=== PATIENT | male | born 1945 | race Caucasian/White ===

== ENCOUNTER 2017-09-02 11:44 | Emergency (ER) | payer OTHER ==
[~2017-09-02] VITALS: Ht 175.3 cm; Wt 97.8 kg
[~2017-09-02 11:44] MED LIST: ASPI81CH PO; ATORVASTATIN CA20 MG PO; ATORVASTATIN CA40 MG PO; Bactrim Ds Tab1 EACH PO; CLOP75 PO; CYAN1000I IM; DULO60 PO; FLUC100 PO; HYDR1TAB94 PO; Humalog100 UNIT/1 SQ; INS70/30I SC; INSDET100 SQ; Isosorbide Mono60 MG PO; LANS15EC PO; LANS30EC PO; LOSA50 PO; LOSARTAN POTASS50 MG PO; Lasix20 MG PO; META800 PO; METF500C PO; METO50 PO; Metformin HCl500 M1 PO; NITR.6SL SL; Norco 5-325 Ta1 EACH PO; OXYC5 PO; Percocet 5-3251 EACH PO; Ranexa1000 MG PO; TAMS.4ER PO; TAMSULOSIN HCL0.4 MG PO; TRIMIX; VITAMIN D35000 UNIT PO
[2018-05-11] MEDS ORDERED: HYDR1TAB94 PO (15:12)
[2018-05-11] MEDS ORDERED: Cyclobenzaprine5 MG PO (15:40)
[2018-06-08] MEDS ORDERED: SYNJARDY 12.5-1 EAC1 PO (15:29)
[2018-06-08] MEDS ORDERED: FAMO20 PO (15:30)
[2018-06-08] MEDS ORDERED: ABAT250V (15:30)
[2018-06-08] MEDS ORDERED: Percocet 10-321 EACH PO (16:51)
[2018-06-08] MEDS ORDERED: Prednisone20 MG PO (16:51)
== END 2017-09-02 14:06 | disposition home or self-care (01) ==
LOC: ER 11:44
DX: Z03.89 Encounter for observation for other suspected diseases and conditions ruled out (principal); Z88.0 Allergy status to penicillin; Z88.1 Allergy status to other antibiotic agents; Z79.899 Other long term (current) drug therapy; Z79.4 Long term (current) use of insulin; Z79.82 Long term (current) use of aspirin; E11.9 Type 2 diabetes mellitus without complications
CPT/HCPCS: 74019; 99283

== ENCOUNTER 2017-09-13 13:45 | Day surgery (SDC) | payer OTHER ==
[2017-09-13] MEDS ORDERED: Aspirin EC81 MG (14:49)
[2017-09-13] MEDS ORDERED: CLOP75 PO (14:50)
[2017-09-13] MEDS ORDERED: ISOD40ER PO (14:50)
[2017-09-13] MEDS ORDERED: LOSARTAN POTASS50 MG PO (14:52)
[2017-09-13] MEDS ORDERED: METO25 PO (14:52)
[2017-09-13] MEDS ORDERED: Prevacid Soluta30 MG JT (14:53)
[2017-09-13] MEDS ORDERED: METF500 PO (14:54)
[2017-09-13] MEDS ORDERED: METO25 (14:55)
[2018-05-11] MEDS ORDERED: HYDR1TAB94 PO (15:12)
[2018-05-11] MEDS ORDERED: Cyclobenzaprine5 MG PO (15:40)
[2018-06-08] MEDS ORDERED: SYNJARDY 12.5-1 EAC1 PO (15:29)
[2018-06-08] MEDS ORDERED: FAMO20 PO (15:30)
[2018-06-08] MEDS ORDERED: ABAT250V (15:30)
[2018-06-08] MEDS ORDERED: Percocet 10-321 EACH PO (16:51)
[2018-06-08] MEDS ORDERED: Prednisone20 MG PO (16:51)
== END 2017-09-13 23:12 | disposition home or self-care (01) ==
LOC: ATC 13:45
DX: J44.1 Chronic obstructive pulmonary disease with (acute) exacerbation (principal); R51 Headache; M50.30 Other cervical disc degeneration, unspecified cervical region; E11.9 Type 2 diabetes mellitus without complications; I10 Essential (primary) hypertension; I25.10 Atherosclerotic heart disease of native coronary artery without angina pectoris; K21.9 Gastro-esophageal reflux disease without esophagitis
CPT/HCPCS: 96372; J0696

== ENCOUNTER 2017-09-14 01:04 | Day surgery (SDC) | payer OTHER ==
[~2017-09-14 01:04] MED LIST changes: +Aspirin EC81 MG; +ISOD40ER PO; +METF500 PO; +METO25; +METO25 PO; +Prevacid Soluta30 MG JT
[2018-05-11] MEDS ORDERED: HYDR1TAB94 PO (15:12)
[2018-05-11] MEDS ORDERED: Cyclobenzaprine5 MG PO (15:40)
[2018-06-08] MEDS ORDERED: SYNJARDY 12.5-1 EAC1 PO (15:29)
[2018-06-08] MEDS ORDERED: ABAT250V (15:30)
[2018-06-08] MEDS ORDERED: FAMO20 PO (15:30)
[2018-06-08] MEDS ORDERED: Percocet 10-321 EACH PO (16:51)
[2018-06-08] MEDS ORDERED: Prednisone20 MG PO (16:51)
== END 2017-09-14 14:35 | disposition home or self-care (01) ==
LOC: ATC 01:04
DX: J44.1 Chronic obstructive pulmonary disease with (acute) exacerbation (principal); R51 Headache; M50.30 Other cervical disc degeneration, unspecified cervical region; E11.9 Type 2 diabetes mellitus without complications; I10 Essential (primary) hypertension; K21.9 Gastro-esophageal reflux disease without esophagitis
CPT/HCPCS: 96372; J0696

== ENCOUNTER 2017-09-15 | Day surgery (SDC) | END 2017-09-15 15:41 | disposition home or self-care (01) ==

== ENCOUNTER 2017-09-16 | Day surgery (SDC) | END 2017-09-16 14:15 | disposition home or self-care (01) ==

== ENCOUNTER 2017-09-17 00:42 | Day surgery (SDC) | payer OTHER ==
[2018-05-11] MEDS ORDERED: HYDR1TAB94 PO (15:12)
[2018-05-11] MEDS ORDERED: Cyclobenzaprine5 MG PO (15:40)
[2018-06-08] MEDS ORDERED: SYNJARDY 12.5-1 EAC1 PO (15:29)
[2018-06-08] MEDS ORDERED: ABAT250V (15:30)
[2018-06-08] MEDS ORDERED: FAMO20 PO (15:30)
[2018-06-08] MEDS ORDERED: Percocet 10-321 EACH PO (16:51)
[2018-06-08] MEDS ORDERED: Prednisone20 MG PO (16:51)
== END 2017-09-17 13:59 | disposition home or self-care (01) ==
LOC: ATC 00:42
DX: J44.1 Chronic obstructive pulmonary disease with (acute) exacerbation (principal); R51 Headache; M50.30 Other cervical disc degeneration, unspecified cervical region; E11.9 Type 2 diabetes mellitus without complications; I10 Essential (primary) hypertension; I25.10 Atherosclerotic heart disease of native coronary artery without angina pectoris; I25.2 Old myocardial infarction; K21.9 Gastro-esophageal reflux disease without esophagitis
CPT/HCPCS: 96372; J0696

== ENCOUNTER 2018-12-26 17:05 | Emergency (ER) | payer MEDICARE ==
[~2018-12-26] VITALS: Ht 175.3 cm; Wt 90.7 kg
[~2018-12-26 17:05] MED LIST changes: +ABAT250V; +Cyclobenzaprine5 MG PO; +FAMO20 PO; +Percocet 10-321 EACH PO; +Prednisone20 MG PO; +SYNJARDY 12.5-1 EAC1 PO
[2018-12-26 17:53] LABS: BASOPHILS ABSOLUTE AUTO 0.04 K/mm3 (0.00-0.23); BASOPHILS PERCENT AUTO 1 % (0-2); EOSINOPHILS ABSOLUTE AUTO 0.12 K/mm3 (0.00-0.68); EOSINOPHILS PERCENT AUTO 2 % (0-6); Hematocrit 42.3 % (37.0-53.0); Hemoglobin 13.3 g/dL (13.5-17.5); IMMATURE GRAN ABSOLUTE AUTO 0.09 K/mm3 (0.00-0.10); IMMATURE GRAN PERCENT AUTO 2 % (0-1); LYMPHOCYTES ABSOLUTE AUTO 0.52 K/mm3 (0.84-5.20); LYMPHOCYTES PERCENT AUTO 10 % (21-46); MONOCYTES ABSOLUTE AUTO 0.48 K/mm3 (0.16-1.47); MONOCYTES PERCENT AUTO 9 % (4-13); Mean Corpuscular HGB 28.6 pg (26.0-34.0); Mean Corpuscular HGB Conc 31.4 g/dL (31.5-36.5); Mean Corpuscular Volume 91 fL (80-100); Mean Platelet Volume 10.9 fL (9.1-12.4); NEUTROPHILS ABSOLUTE AUTO 4.25 K/mm3 (1.96-9.15); NEUTROPHILS PERCENT AUTO 77 % (41-73); Platelet Count 96 K/mm3 (150-400); RDW Coefficient Variation 15.4 % (11.7-14.2); RDW Standard Deviation 50.5 fL (35.1-46.3); Red Blood Cell Count 4.65 M/mm3 (4.30-5.90)
[2018-12-26 18:18] LABS: Alanine Aminotransfer (ALT/SGP 52 U/L (12-78); Albumin, Blood 3.2 g/dL (3.4-5.0); Albumin/Globulin Ratio 1.1 (0.8-1.8); Alk Phos 105 U/L (50-136); Anion Gap 6 mmol/L (6-16); Aspartate Aminotrans (AST/SGOT 58 U/L (12-37); Bilirubin, Total 0.8 mg/dL (0.1-1.0); Blood Urea Nitrogen 25 mg/dL (8-24); Bun/Creatinine Ratio 17.5 (12.0-20.0); CO2, Blood 24 mmol/L (21-32); Calcium, Blood 8.2 mg/dL (8.5-10.1); Chloride, Blood 108 mmol/L (98-108); Creatinine, Blood 1.43 mg/dL (0.60-1.20); Glomerular Filtration Rate 51 (60-); Glucose, Blood 102 mg/dL (70-99); Potassium, Blood 5.2 mmol/L (3.5-5.5); Sodium, Blood 138 mmol/L (136-145); Total Protein, Blood 6.2 g/dL (6.4-8.2); Troponin I <0.015 ng/mL (0.000-0.040)
[2018-12-26 20:01] LABS: International Normalized Ratio 1.25
== END 2018-12-26 20:38 | disposition short-term general hospital (02) ==
LOC: ER 17:05
PROVIDERS: Emergency Medicine; Physician Assistant
DX: S06.6X9A Traumatic subarachnoid hemorrhage with loss of consciousness of unspecified duration, initial encounter (principal); S00.03XA Contusion of scalp, initial encounter; W01.198A Fall on same level from slipping, tripping and stumbling with subsequent striking against other object, initial encounter; Z88.0 Allergy status to penicillin; Z88.8 Allergy status to other drugs, medicaments and biological substances; Z88.1 Allergy status to other antibiotic agents; Z79.899 Other long term (current) drug therapy; Z79.82 Long term (current) use of aspirin; Z79.52 Long term (current) use of systemic steroids; E11.9 Type 2 diabetes mellitus without complications
CPT/HCPCS: 36415; 70450; 80053; 84484; 85025; 85610; 85730; 93005; 93010; 99285-25

== ENCOUNTER 2019-02-07 13:30 | Emergency (ER) | payer MEDICARE ==
[~2019-02-07] VITALS: Ht 175.3 cm; Wt 83.9 kg
[2019-02-07 14:28] LABS: BASOPHILS ABSOLUTE AUTO 0.04 K/mm3 (0.00-0.23); BASOPHILS PERCENT AUTO 1 % (0-2); EOSINOPHILS ABSOLUTE AUTO 0.08 K/mm3 (0.00-0.68); EOSINOPHILS PERCENT AUTO 2 % (0-6); Hematocrit 49.5 % (37.0-53.0); IMMATURE GRAN ABSOLUTE AUTO 0.02 K/mm3 (0.00-0.10); IMMATURE GRAN PERCENT AUTO 0 % (0-1); LYMPHOCYTES ABSOLUTE AUTO 0.61 K/mm3 (0.84-5.20); LYMPHOCYTES PERCENT AUTO 11 % (21-46); MONOCYTES ABSOLUTE AUTO 0.41 K/mm3 (0.16-1.47); MONOCYTES PERCENT AUTO 8 % (4-13); Mean Corpuscular HGB 28.1 pg (26.0-34.0); Mean Corpuscular HGB Conc 32.3 g/dL (31.5-36.5); Mean Corpuscular Volume 87 fL (80-100); Mean Platelet Volume 11.9 fL (9.1-12.4); NEUTROPHILS ABSOLUTE AUTO 4.31 K/mm3 (1.96-9.15); NEUTROPHILS PERCENT AUTO 79 % (41-73); Platelet Count 120 K/mm3 (150-400); RDW Coefficient Variation 15.9 % (11.7-14.2); RDW Standard Deviation 49.4 fL (35.1-46.3); Red Blood Cell Count 5.69 M/mm3 (4.30-5.90); White Blood Cell Count 5.47 K/mm3 (4.00-11.30)
[2019-02-07 15:03] LABS: Alanine Aminotransfer (ALT/SGP 46 U/L (12-78); Albumin, Blood 3.5 g/dL (3.4-5.0); Albumin/Globulin Ratio 0.9 (0.8-1.8); Alk Phos 218 U/L (50-136); Anion Gap 11 mmol/L (6-16); Aspartate Aminotrans (AST/SGOT 25 U/L (12-37); Bilirubin, Total 1.3 mg/dL (0.1-1.0); Blood Urea Nitrogen 21 mg/dL (8-24); CO2, Blood 24 mmol/L (21-32); Calcium, Blood 9.5 mg/dL (8.5-10.1); Chloride, Blood 101 mmol/L (98-108); Globulin, Blood 3.7 g/dL (2.2-4.0); Glucose, Blood 445 mg/dL (70-99); Potassium, Blood 4.2 mmol/L (3.5-5.5); Sodium, Blood 136 mmol/L (136-145); Total Protein, Blood 7.2 g/dL (6.4-8.2)
[2019-02-07] MEDS ORDERED: Novolog100 UNIT/2 (15:12)
[2019-02-07] MEDS ORDERED: LOSARTAN POTASS25 MG (15:13)
[2019-02-07] MEDS ORDERED: ZYRTEC10 M1 PO (15:15)
[2019-02-07] MEDS ORDERED: TRESIBA FL100 UNIT/1 SQ (15:16)
[2019-02-07] MEDS ORDERED: DULO60 PO (15:16)
[2019-02-07 16:26] LABS: Source, Urine Clean Catch
[2019-02-07 16:35] LABS: Bilirubin, Urine Neg (Neg); Blood, Urine 2+ (Neg); Glucose Qualitative, Urine 4+ (Neg); Ketones, Urine 2+ (Neg); Leukocyte Esterase, Urine Neg (Neg); Nitrite, Urine Neg (Neg); Protein, Urine 2+ (Neg); Specific Gravity, Urine 1.015 (1.003-1.022); Urobilinogen, Urine NORM (Normal)
[2019-02-07 16:45] LABS: Appearance, Urine Clear (Clear); Color, Urine Yellow (P-Yellow)
[2019-02-07 16:47] LABS: Bacteria Rare /hpf; Squamous Epithelial Cells Few /hpf (Few); White Blood Cells, Urine 0-2 /hpf (0-5); Yeast/Fungi Urine Rare /hpf
[2019-02-07 16:49] LABS: Bun/Creatinine Ratio 24.8 (12.0-20.0); Creatinine, Blood 0.85 mg/dL (0.60-1.20); Glomerular Filtration Rate >60 (60-)
== END 2019-02-07 17:54 | disposition home or self-care (01) ==
LOC: ER 13:30
PROVIDERS: Physician Assistant
DX: E11.65 Type 2 diabetes mellitus with hyperglycemia (principal); Z91.14 Patient's other noncompliance with medication regimen; I10 Essential (primary) hypertension; I25.2 Old myocardial infarction; Z88.0 Allergy status to penicillin; Z88.1 Allergy status to other antibiotic agents; Z79.899 Other long term (current) drug therapy
CPT/HCPCS: 70450; 80053; 81001; 82947; 84443; 85025; 93005; 93010; 99284-25

== ENCOUNTER → 2019-03-08 | Outpatient (CLI) | payer MEDICARE ==
[~2019-03-08] MED LIST changes: +LOSARTAN POTASS25 MG; +Novolog100 UNIT/2; +TRESIBA FL100 UNIT/1 SQ; +ZYRTEC10 M1 PO
== END | disposition home or self-care (01) ==
LOC: LAB SHORT 10:53 → LAB 10:53
DX: R19.7 Diarrhea, unspecified (principal)
CPT/HCPCS: 87015; 87045; 87046; 87177; 87205; 87209; 87493; 87899

== ENCOUNTER → 2019-05-30 | Outpatient (CLI) | payer MEDICARE ==
[2019-06-01 14:11] LABS: Stool Occult Bld Immuno 1 Negative (NEGATIVE); Stool Occult Bld Immuno 2 Negative (NEGATIVE)
== END | disposition home or self-care (01) ==
LOC: OLS 16:00 → LAB SHORT 16:00
PROVIDERS: Internal Medicine Gastroenterology
DX: Z12.11 Encounter for screening for malignant neoplasm of colon (principal)
CPT/HCPCS: 82274

== ENCOUNTER 2019-08-09 21:16 | Inpatient (IN) | payer MEDICARE ==
[~2019-08-09] VITALS: Ht 175.3 cm; Wt 93.3 kg
[~2019-08-09 21:16] MED LIST changes: -Aspirin EC81 MG; +Aspirin EC81 MG PO; +Cymbalta20 MG PO; -Novolog100 UNIT/2; +Novolog100 UNIT/2 SC; -Prevacid Soluta30 MG JT; +Prevacid Soluta30 MG PO
[2019-08-09 22:19] LABS: BASOPHILS ABSOLUTE AUTO 0.05 K/mm3 (0.00-0.23); BASOPHILS PERCENT AUTO 1 % (0-2); EOSINOPHILS ABSOLUTE AUTO 0.23 K/mm3 (0.00-0.68); EOSINOPHILS PERCENT AUTO 6 % (0-6); Hematocrit 42.6 % (37.0-53.0); Hemoglobin 13.2 g/dL (13.5-17.5); IMMATURE GRAN ABSOLUTE AUTO 0.02 K/mm3 (0.00-0.10); IMMATURE GRAN PERCENT AUTO 1 % (0-1); LYMPHOCYTES ABSOLUTE AUTO 0.72 K/mm3 (0.84-5.20); LYMPHOCYTES PERCENT AUTO 18 % (21-46); MONOCYTES ABSOLUTE AUTO 0.44 K/mm3 (0.16-1.47); MONOCYTES PERCENT AUTO 11 % (4-13); Mean Corpuscular HGB 27.6 pg (26.0-34.0); Mean Corpuscular Volume 89 fL (80-100); Mean Platelet Volume 10.2 fL (9.1-12.4); NEUTROPHILS ABSOLUTE AUTO 2.57 K/mm3 (1.96-9.15); NEUTROPHILS PERCENT AUTO 64 % (41-73); Platelet Count 85 K/mm3 (150-400); RDW Coefficient Variation 16.9 % (11.7-14.2); RDW Standard Deviation 55.3 fL (35.1-46.3); Red Blood Cell Count 4.79 M/mm3 (4.30-5.90); White Blood Cell Count 4.03 K/mm3 (4.00-11.30)
[2019-08-09 22:29] LABS: Source, Urine Voided
[2019-08-09 22:31] LABS: Bilirubin, Urine Neg (Neg); Blood, Urine 4+ (Neg); Glucose Qualitative, Urine 4+ (Neg); Ketones, Urine 1+ (Neg); Leukocyte Esterase, Urine Neg (Neg); Nitrite, Urine Neg (Neg); Protein, Urine 3+ (Neg); Urobilinogen, Urine NORM (Normal)
[2019-08-09 22:35] LABS: Alanine Aminotransfer (ALT/SGP 26 U/L (12-78); Albumin, Blood 2.9 g/dL (3.4-5.0); Albumin/Globulin Ratio 0.9 (0.8-1.8); Alk Phos 167 U/L (50-136); Anion Gap 9 mmol/L (6-16); Aspartate Aminotrans (AST/SGOT 29 U/L (12-37); Bilirubin, Total 0.6 mg/dL (0.1-1.0); Blood Urea Nitrogen 20 mg/dL (8-24); Bun/Creatinine Ratio 23.4 (12.0-20.0); CO2, Blood 27 mmol/L (21-32); Calcium, Blood 8.6 mg/dL (8.5-10.1); Chloride, Blood 109 mmol/L (98-108); Creatinine, Blood 0.86 mg/dL (0.60-1.20); Globulin, Blood 3.3 g/dL (2.2-4.0); Glomerular Filtration Rate >60 (60-); Glucose, Blood 279 mg/dL (70-99); Potassium, Blood 4.5 mmol/L (3.5-5.5); Sodium, Blood 145 mmol/L (136-145); Total Protein, Blood 6.2 g/dL (6.4-8.2)
[2019-08-09 22:39] LABS: Color, Urine Yellow (P-Yellow)
[2019-08-09 22:40] LABS: Appearance, Urine Clear (Clear); Bacteria Not Seen /hpf; Mucus Light (0-Heavy); Squamous Epithelial Cells Not Seen /hpf (Few); White Blood Cells, Urine Not Seen /hpf (0-5)
--- NOTE | 2019-08-10 02:10 | NUR ---
ADMIT TO UNIT PATIENT ARRIVED FROM ER VIA GURNEY AND SAFELY TRANSFERRED SELF TO UNIT BED WITH NO ISSUES OBSERVED BY PCU STAFF. PT IS ALERT AND ORIENTED X 3 DENIES ACUTE PAIN, DENIES NAUSEA. VSS, O2 SAT 94% ON ROOM AIR. WILL TREAT PER EMAR AND UNIT PROTOCOL AND CONTINUE TO MONITOR AND PROVIDE CARE. CALL LIGHT W/IN REACH
--- NOTE | 2019-08-10 05:47 | NUR ---
SHIFT SUMMARY PATIENT SLEEPING. TREATED PATIENT PER MD ORDER AND UNIT PROTOCOL. ALL VSS AND WNL. O2 SATURATION AT 92% ON RA. WILL CONTINUE TO MONITOR, AND WILL PASS CARE AND REPORT TO ONCOMING SHIFT. BED LOCKED AND LOW, CALL LIGHT W/IN REACH
[2019-08-10 09:48] LABS: Hematocrit 43.4 % (37.0-53.0); Hemoglobin 13.4 g/dL (13.5-17.5); Mean Corpuscular HGB 27.3 pg (26.0-34.0); Mean Corpuscular HGB Conc 30.9 g/dL (31.5-36.5); Mean Corpuscular Volume 89 fL (80-100); Mean Platelet Volume 9.9 fL (9.1-12.4); Platelet Count 94 K/mm3 (150-400); RDW Coefficient Variation 16.9 % (11.7-14.2); RDW Standard Deviation 54.2 fL (35.1-46.3)
[2019-08-10 10:00] LABS: International Normalized Ratio 1.16; Prothrombin Time Results 12.3 Sec (9.7-11.5)
[2019-08-10 10:01] LABS: Alanine Aminotransfer (ALT/SGP 30 U/L (12-78); Albumin/Globulin Ratio 0.9 (0.8-1.8); Alk Phos 133 U/L (50-136); Anion Gap 5 mmol/L (6-16); Aspartate Aminotrans (AST/SGOT 30 U/L (12-37); Bilirubin, Total 1.4 mg/dL (0.1-1.0); Blood Urea Nitrogen 19 mg/dL (8-24); Bun/Creatinine Ratio 19.8 (12.0-20.0); CO2, Blood 31 mmol/L (21-32); Calcium, Blood 8.6 mg/dL (8.5-10.1); Chloride, Blood 106 mmol/L (98-108); Creatinine, Blood 0.96 mg/dL (0.60-1.20); Globulin, Blood 3.5 g/dL (2.2-4.0); Glomerular Filtration Rate >60 (60-); Glucose, Blood 169 mg/dL (70-99); Potassium, Blood 3.6 mmol/L (3.5-5.5); Sodium, Blood 142 mmol/L (136-145); Total Protein, Blood 6.5 g/dL (6.4-8.2)
--- NOTE | 2019-08-10 14:11 | NUR ---
DR STEPHEN IN TO SEE PT. PER DR STEPHEN HE RECOMMENDS [facility] STRESS TEST, ECHO AND ZIO MONITOR FOR 30 DAYS UPON DISCHARGE. PER DR STEPHEN HE DOES NOT SEE AN INDICATION FOR HEPARIN GTT. ISTRATE NOTIFIED AND REPORTS HE WILL PLACE ORDERS.
--- NOTE | 2019-08-10 14:25 | NUR ---
ECHO IN PROGRESS.
--- NOTE | 2019-08-10 14:31 | NUR ---
PT UNABLE TO GET STRESS TEST DONE TODAY. DR GIBSON NOTIFIED AND ASKED IF PT CAN GET A 1 DAY STRESS TEST DONE TOMORROW. PER IMAGING THEY WILL LET THE NUC MED TECH KNOW TOMORROW THAT DR GIBSON WOULD LIKE A 1 DAY STRESS TEST IF POSSIBLE. NUC MED TECH WILL EVALUATE IF POSSIBLE. PER DR GIBSON PLACE PT ON LOVENOX 40MG DAILY STARTING TODAY AT 1700 HEPARIN GTT WAS DC'D.
--- NOTE | 2019-08-10 16:30 | NUR ---
SHIFT SUMMARY- PT A/OX4, INDEP UP IN ROOM. PT REPORTS DIZZINESS WITH SITTING OR STANDING THAT COMES AND GOES, PT STEADY WITH AMBULATION. LS CLEAR WITH CRACKLES IN THE LEFT BASE, ON RA, PT REPORTS HE HAS A CPAP AT HOME BUT HAS NOT WORN IT FOR THE PAST 3-4 MONTHS, ENCOURAGED PT TO USE CPAP WHILE AT THE HOSPITAL. TELE NSR AT 89. 3+ BLE EDEMA NOTED. PT DIURESING WELL. CARDIOLOGY CONSULT TODAY, RECOMMENDATIONS FOR ECHO AND STRESS TEST WELL ZIO MONITOR AT DISCHARGE FOR 30 DAYS. PT TO BE NPO EXCEPT WATER FOR STRESS TEST TOMORROW. PT CONT TO REPORT FEELING BLOATED TO ABD, ABD MILDLY DISTENDED WITH NORMAL BOWEL TONES. NO OTHER ACUTE CHANGES THIS SHIFT.
--- NOTE | 2019-08-10 17:07 | NUR ---
ECHOCARDIOGRAM COMPLETED
[2019-08-10] MEDS ORDERED: ISOSORBIDE MONO30 MG PO (17:20)
[2019-08-10] MEDS ORDERED: METF500C PO (17:26)
[2019-08-10] MEDS ORDERED: TRULICITY1.5 MG/0.5 SC (17:27)
--- NOTE | 2019-08-10 17:49 | NUR ---
DR STEPHEN IN TO SEE PT. PER DR STEPHEN CHANGE OF PLANS, CANCEL STRESS TEST. PT TO GO FOR HEART CATH TOMORROW. DR STEPHEN IN AND SPOKE WITH PT AND FAMILY. CONSENT PLACED IN CHART. PT TO BE NPO AFTER MIDNIGHT.
[2019-08-11 04:38] LABS: BASOPHILS ABSOLUTE AUTO 0.05 K/mm3 (0.00-0.23); BASOPHILS PERCENT AUTO 1 % (0-2); EOSINOPHILS ABSOLUTE AUTO 0.26 K/mm3 (0.00-0.68); EOSINOPHILS PERCENT AUTO 7 % (0-6); Hematocrit 42.1 % (37.0-53.0); Hemoglobin 13.3 g/dL (13.5-17.5); IMMATURE GRAN ABSOLUTE AUTO 0.02 K/mm3 (0.00-0.10); IMMATURE GRAN PERCENT AUTO 1 % (0-1); LYMPHOCYTES ABSOLUTE AUTO 0.74 K/mm3 (0.84-5.20); LYMPHOCYTES PERCENT AUTO 20 % (21-46); MONOCYTES ABSOLUTE AUTO 0.44 K/mm3 (0.16-1.47); MONOCYTES PERCENT AUTO 12 % (4-13); Mean Corpuscular HGB 27.7 pg (26.0-34.0); Mean Corpuscular HGB Conc 31.6 g/dL (31.5-36.5); Mean Corpuscular Volume 88 fL (80-100); Mean Platelet Volume 11.6 fL (9.1-12.4); NEUTROPHILS ABSOLUTE AUTO 2.21 K/mm3 (1.96-9.15); NEUTROPHILS PERCENT AUTO 60 % (41-73); Platelet Count 81 K/mm3 (150-400); RDW Coefficient Variation 16.6 % (11.7-14.2); RDW Standard Deviation 53.6 fL (35.1-46.3); White Blood Cell Count 3.72 K/mm3 (4.00-11.30)
[2019-08-11 04:56] LABS: Anion Gap 6 mmol/L (6-16); Blood Urea Nitrogen 22 mg/dL (8-24); Bun/Creatinine Ratio 22.6 (12.0-20.0); CO2, Blood 30 mmol/L (21-32); Calcium, Blood 8.7 mg/dL (8.5-10.1); Chloride, Blood 105 mmol/L (98-108); Creatinine, Blood 0.97 mg/dL (0.60-1.20); Glomerular Filtration Rate >60 (60-); Glucose, Blood 275 mg/dL (70-99); Potassium, Blood 3.8 mmol/L (3.5-5.5); Sodium, Blood 141 mmol/L (136-145)
--- NOTE | 2019-08-11 06:04 | NUR ---
SHIFT SUMMARY Pt with no acute events overnight. VSS. Denies CP or pressure. Pt with difficulty falling to sleep, melatonin ordered by provider and given per orders. pt able to sleep on and off after 0100. Pt is alert and oriented, independant in room, able to make needs known. No events on tele. See shift assessment for detailed systems assessment, no acute changes from initial assessment. Pt aware of plan of care. NPO since MN per orders in preparation for possible angio this am. Call light in reach. Will continue to monitor.
--- NOTE | 2019-08-11 08:00 | NUR ---
ASSUMED CARE PT ALERT AND ORIENTED. VS STABLE. O2 SATS REMAIN ABOVE 90% ON RA. BP STABLE. HR NSR. PT DENIES ANY CP/PRESSURE. DR. STEPHEN IN TO SEE PT THIS AM WITH PLANS FOR CARDIAC CATH. PT AWAITING PROCEDURE. WILL CONTINUE TO MONITOR CLOSELY.
--- NOTE | 2019-08-11 14:00 | NUR ---
UPDATE PT TAKEN TO [facility] FOR CARDIAC CATH. WILL AWAIT RETURN.
--- NOTE | 2019-08-11 17:00 | NUR ---
PT RETURNED. VS STABLE. HR NSR. PT DENIES ANY PAIN. RIGHT RADIAL SITE WITH NO SIGNS OF BLEEDING OR HEMATOMA NOTED. TR BAND IN PLACE WITH 13ML OF AIR AND ARM BOARD IN PLACE. WILL CONTINUE TO MONITOR CLOSELY.
--- NOTE | 2019-08-11 18:34 | NUR ---
SHIFT SUMMARY PT ALERT AND ORIENTED. VS STABLE. HR NSR. BP STABLE. RIGHT RADIAL SITE FREE FROM ANY BLEEDING OR HEMATOMA NOTED. RIGHT BRACHIAL SITE WITH NAREN DRESSING IN PLACE. PT COMPLAINED OF CHEST PAIN 8/[address] STEPHEN CALLED AND 1 NITRO GIVEN. ECG COMPLETED IN FRONT OF CHART. PT REPORTS CHEST PAIN IS NOW 2/10 AFTER 1 NITRO. WILL CONTINUE TO MONITOR CLOSELY AND REPORT TO ONCOMING RN. CALL LIGHT IN REACH.
[2019-08-12 03:53] LABS: BASOPHILS ABSOLUTE AUTO 0.03 K/mm3 (0.00-0.23); BASOPHILS PERCENT AUTO 1 % (0-2); EOSINOPHILS ABSOLUTE AUTO 0.18 K/mm3 (0.00-0.68); EOSINOPHILS PERCENT AUTO 4 % (0-6); Hematocrit 42.1 % (37.0-53.0); Hemoglobin 13.2 g/dL (13.5-17.5); IMMATURE GRAN ABSOLUTE AUTO 0.02 K/mm3 (0.00-0.10); IMMATURE GRAN PERCENT AUTO 1 % (0-1); LYMPHOCYTES ABSOLUTE AUTO 0.64 K/mm3 (0.84-5.20); LYMPHOCYTES PERCENT AUTO 15 % (21-46); MONOCYTES ABSOLUTE AUTO 0.46 K/mm3 (0.16-1.47); MONOCYTES PERCENT AUTO 11 % (4-13); Mean Corpuscular HGB 27.6 pg (26.0-34.0); Mean Corpuscular HGB Conc 31.4 g/dL (31.5-36.5); Mean Corpuscular Volume 88 fL (80-100); Mean Platelet Volume 10.9 fL (9.1-12.4); NEUTROPHILS ABSOLUTE AUTO 2.93 K/mm3 (1.96-9.15); NEUTROPHILS PERCENT AUTO 69 % (41-73); Platelet Count 75 K/mm3 (150-400); RDW Coefficient Variation 16.4 % (11.7-14.2); RDW Standard Deviation 53.1 fL (35.1-46.3); Red Blood Cell Count 4.79 M/mm3 (4.30-5.90); White Blood Cell Count 4.26 K/mm3 (4.00-11.30)
[2019-08-12 04:08] LABS: Anion Gap 7 mmol/L (6-16); Blood Urea Nitrogen 19 mg/dL (8-24); CO2, Blood 30 mmol/L (21-32); Calcium, Blood 8.5 mg/dL (8.5-10.1); Chloride, Blood 101 mmol/L (98-108); Glomerular Filtration Rate >60 (60-); Glucose, Blood 298 mg/dL (70-99); Magnesium, Blood 1.7 mg/dL (1.6-2.4); Potassium, Blood 3.7 mmol/L (3.5-5.5); Sodium, Blood 138 mmol/L (136-145)
--- NOTE | 2019-08-12 06:48 | NUR ---
Shift Summary No acute events this shift, R Radial access site fully recovered at 0215; site wnl, tegaderm in place, arm board in place, pt compliant with R arm restriction. R brachial access site with ELIZABETH rasheed. Pt alert and oriented, denies chest pain or pressure. No events on tele. No acute changes from initial shift assessment. RT in this shift for breathing tx d/t SOB and wheezing noted; SOB resolved and wheezing resolved with tx. Pt independant in room, able to make needs known. Will continue to monitor.
--- NOTE | 2019-08-12 09:00 | NUR ---
ASSUMED CARE PT ALERT AND ORIENTED. VS STABLE. HR NSR. PT DENIES ANY CP/PRESSURE. O2 SATS REMAIN ABOVE 90% ON RA. PT ABLE TO AMBULATE THROUGH THE DEPARTMENT WITH O2 SATS REMAINING ABOVE 90% ON RA. PT DENIES FEELING SOB THIS AM. DR. STEPHEN IN WITH MEDICATION CHANGES. WILL CONTINUE TO MONITOR CLOSELY.
--- NOTE | 2019-08-12 17:57 | NUR ---
SHIFT SUMMARY PT ALERT AND ORIENTED. VS STABLE. O2 SATS REMAIN ABOVE 90% ON RA. PT DENIES SOB/ CP OR PRESSURE. HR NSR. PT INDEPENDENT IN ROOM. DR. STEPHEN PLAN TO KEEP PT OVER NIGHT TO CONTINUE TO DIURESE. SEWING MACHINE TESTER IN ROOM FITTING PT FOR LIFE VEST AT THIS TIME. WILL CONTINUE TO MONITOR AND REPORT TO ONCOMING RN. CALL LIGHT IN REACH.
--- NOTE | 2019-08-12 22:40 | NUR ---
Assumed Care Pt alert and oriented, indpendant in room, steady gait. Family at bedside until approx 2100. Pt is calm, cooperative with care. Breathing is even and unlabored on RA. See shift assessment for detailed systems assessment. Denies CP or pressure. Life vest in place. Pt verbalizes no further questions at this time regarding life vest. Education provided to pt and pt's daughter regarding CHF, education materals placed in discharge folder. pt uses call light to make needs known. S/L at this time. VSS. no acute concerns to note. Will continue to montior.
[2019-08-13 04:32] LABS: Anion Gap 6 mmol/L (6-16); Blood Urea Nitrogen 22 mg/dL (8-24); CO2, Blood 31 mmol/L (21-32); Calcium, Blood 8.3 mg/dL (8.5-10.1); Chloride, Blood 102 mmol/L (98-108); Creatinine, Blood 1.05 mg/dL (0.60-1.20); Glomerular Filtration Rate >60 (60-); Glucose, Blood 305 mg/dL (70-99); Magnesium, Blood 1.7 mg/dL (1.6-2.4); Potassium, Blood 3.8 mmol/L (3.5-5.5); Sodium, Blood 139 mmol/L (136-145)
--- NOTE | 2019-08-13 05:53 | NUR ---
Shift Summary Pt with no acute events overnight. Breahting even and unlabored, RA. Life vest in place. No events on tele. Pt denies chest pain or pressure. Pt sleeping on and off throughout shift, approx 4 hrs of sleep last night. Pt complains of not being able to sleep well during this hosptial admission. Pt expresses daily life stressors to this RN, therapeutic listening and communication given. Lantus given per orders, CBG remains elevated this AM. Indep in room. Will continue to monitor
--- NOTE | 2019-08-13 10:41 | NUR ---
Patient is lying in bed and alert. Patient openly tells me about his medical history, his family (including the of his 10yrs ago), his career and his agnostic view of alevism. Patient states that he still has not gotten over the of his . He also shares about his concerns about wearing a monitor for 3 months. I listen empathically, conduct a life review, normalize patient's experience and provide grief support and a blessing. Patient responds well and shows signs of an elevated mood. I will continue to remain available to patient and family.
--- NOTE | 2019-08-13 10:51 | NUR ---
DR SPRING IN TO SEE PT. P.T. TO BE ORDERED TODAY W PLAN TO HAVE PT OOB TO CHAIR. IF BP RAISES/STABLE AND PT TOLERATES ACIVITY PT MAY BE DC'D TO SNF LATER TODAY.
--- NOTE | 2019-08-13 11:01 | NUR ---
PT AWAKE IN BED THIS AM W FAMILY AT BEDSIDE. PT DENIES C/O CHEST PAIN/PRESSURE/SOB. PT W LIFE VEST ON, LIFE VEST OFF FOR SHOWER. [employer] CALL IN TO HELP TROUBLE SHOOT LIFE VEST POST SHOWER; BATTERY NEEDED TO COME OUT WHEN OFF OF PT; FAMILY EDUCATED BY SEGUNDO. DR STEPHEN IN THIS AM AT 0830. LASIX CHANGED TO PO AND GIVEN. PER DR STEPHEN PT MAY BE DC'D HOME LATER IF HE DOES WELL ON PO LASIX;IE ADEQUATE U/O. PT DOES HAVE 3+ PITTING EDMEA TO BLE, LUNGS ARE CLEAR, VSS.
[2019-08-13] MEDS ORDERED: TOPROL XL25 MG PO (11:26)
[2019-08-13] MEDS ORDERED: CLOP75 PO (11:31)
[2019-08-13] MEDS ORDERED: ALBU90OI INH (11:31)
[2019-08-13] MEDS ORDERED: FURO40 PO (11:31)
[2019-08-13] MEDS ORDERED: ATOR80 PO (11:31)
[2019-08-13] MEDS ORDERED: Prinivil10 MG PO (11:32)
[2019-08-13] MEDS ORDERED: Loperamide2 MG PO (11:33)
[2019-08-13] MEDS ORDERED: MELATONIN5 M1 PO (11:33)
[2019-08-13] MEDS ORDERED: ZOFRAN4 MG PO (11:35)
[2019-08-13] MEDS ORDERED: SPIR25 PO (11:36)
--- NOTE | 2019-08-13 13:00 | NUR ---
PT LAYING BACK IN BED. PT DENIES C/O PAIN, BUT STATES HE IS A LITTLE SOB WHEN ASKED. RESP 16-24 DEPENDING ON EXERTION. PT HAS VOIDED 225 DARK URINE THIS SHIFT SO FAR. VSS. LUMGS CLEAR JUST DIM TO BASES. PT CALM AND IN NO RESP DISTRESS.
--- NOTE | 2019-08-13 14:22 | NUR ---
PT SITTING UP, DENIES SOB, PAIN. (PT C/O MINIMAL SOB WHILE LYING FLAT ONLY). VSS. U/O FOR SHIFT 325. LUNGS CLEAR, NO CHANGE IN EDEMA. THIS UPDATE GIVEN TO DR STEPHEN. OKAY TO BE DISCHARGED HOME PER DR STEPHEN. PT HAS CALLED FAMILY FOR PICKUP.
--- NOTE | 2019-08-13 16:58 | NUR ---
PT DISCHARGED HOME AT 1555 IN CARE OF HIS SON IN LAW VIA WHEELCHAIR ESCORT/ELECTRONIC SYSTEM ENGINEER. PT AND FAMILY GIVEN VERBAL AND WRITTEN DISCHARGE INSTRUCTIONS WITH CLEAR UNDERSTANDING. FOLLOW UP APPOINTMENTS MADE FOR PT AND NEW RX CALLED INTO PT'S PHARMACY. PT DC'D WITH LIFE VEST ON AND FEELS COMFORTABLE WITH THE EDUCATION GIVEN.
== END 2019-08-13 15:55 | disposition home or self-care (01) | DRG 246 ==
LOC: ER 21:16 → PCU 08-10 01:19
PROVIDERS: Emergency Medicine; Family Medicine; ADMIT Internal Medicine
PROC: 4A023N8 Measurement of Cardiac Sampling and Pressure, Bilateral, Percutaneous Approach (ICD-10-PCS; principal; 2019-08-11)
PROC: 027136Z Dilation of Coronary Artery, Two Arteries with Three Drug-eluting Intraluminal Devices, Percutaneous Approach (ICD-10-PCS; 2019-08-11)
PROC: B211YZZ Fluoroscopy of Multiple Coronary Arteries using Other Contrast (ICD-10-PCS; 2019-08-11)
PROC: 02703ZZ Dilation of Coronary Artery, One Artery, Percutaneous Approach (ICD-10-PCS; 2019-08-11)
DX: I25.10 Atherosclerotic heart disease of native coronary artery without angina pectoris (principal); I50.33 Acute on chronic diastolic (congestive) heart failure; I25.810 Atherosclerosis of coronary artery bypass graft(s) without angina pectoris; I11.0 Hypertensive heart disease with heart failure; Z95.5 Presence of coronary angioplasty implant and graft; I25.2 Old myocardial infarction; K21.9 Gastro-esophageal reflux disease without esophagitis; E11.9 Type 2 diabetes mellitus without complications; I44.7 Left bundle-branch block, unspecified; D69.49 Other primary thrombocytopenia
CPT/HCPCS: 36415; 71046; 74018; 80048; 80053; 81001; 82947; 83735; 83880; 84484; 85025; 85027; 85347; 85610; 85730; 93005; 93010; 93306; 93458; 93460; 94640; 94760; 96374; 99285-25; C1725; C1769; C1874; C1887; C1894; C9600; C9601; J1644; J1650; J1940; J2250; J3010; J7030; Q9967

== ENCOUNTER 2020-09-09 18:05 | Inpatient (IN) | payer MEDICARE ==
[~2020-09-09] VITALS: Ht 172.7 cm; Wt 86.8 kg
[~2020-09-09 18:05] MED LIST changes: +ALBU90OI INH; +ATOR80 PO; +ENTRESTO 24 MG1 EAC3 PO; +FURO40 PO; +ISOSORBIDE MONO30 MG PO; +Loperamide2 MG PO; +MELATONIN5 M1 PO; +Prinivil10 MG PO; +SPIR25 PO; +TOPROL XL25 MG PO; +TORS10 PO; -TRESIBA FL100 UNIT/1 SQ; +TRESIBA FL100 UNIT/2 SC; +TRULICITY1.5 MG/0.5 SC; +ZOFRAN4 MG PO
[2020-09-09 18:43] LABS: Hematocrit 36.9 % (37.0-53.0); Mean Corpuscular HGB 28.8 pg (26.0-34.0); Mean Corpuscular HGB Conc 32.5 g/dL (31.5-36.5); Mean Corpuscular Volume 89 fL (80-100); Mean Platelet Volume 11.6 fL (9.1-12.4); RDW Coefficient Variation 17.1 % (11.7-14.2); RDW Standard Deviation 55.1 fL (35.1-46.3); Red Blood Cell Count 4.17 M/mm3 (4.30-5.90); White Blood Cell Count 18.27 K/mm3 (4.00-11.30)
[2020-09-09 18:47] LABS: Platelet Count 38 K/mm3 (150-400)
[2020-09-09 18:58] LABS: International Normalized Ratio 1.44; Prothrombin Time Results 15.1 Sec (9.7-11.5)
[2020-09-09 19:02] LABS: Albumin, Blood 1.9 g/dL (3.4-5.0); Albumin/Globulin Ratio 0.5 (0.8-1.8); BAND PERCENT MAN 23 % (0-8); BASOPHILS PERCENT MAN 0 % (0-2); Bilirubin, Total 7.5 mg/dL (0.1-1.0); Bun/Creatinine Ratio 23.1 (12.0-20.0); Calcium, Blood 8.2 mg/dL (8.5-10.1); Creatinine, Blood 3.25 mg/dL (0.60-1.20); EOSINOPHILS PERCENT MAN 0 % (0-6); Globulin, Blood 3.7 g/dL (2.2-4.0); MONOCYTES ABSOLUTE MAN 0.36 K/mm3 (0.16-1.47); MONOCYTES PERCENT MAN 2 % (4-13); Magnesium, Blood 1.7 mg/dL (1.6-2.4); Potassium, Blood 4.9 mmol/L (3.5-5.5); TOTAL CELLS COUNTED 100; Total Protein, Blood 5.6 g/dL (6.4-8.2)
[2020-09-09 19:05] LABS: LYMPHOCYTES ABSOLUTE MAN 0.18 K/mm3 (0.84-5.20); LYMPHOCYTES PERCENT MAN 1 % (21-46); NEUTROPHILS ABSOLUTE MAN 17.72 K/mm3 (1.96-9.15); SEG NEUTROPHILS PERCENT MAN 74 % (41-73)
[2020-09-09] MEDS ORDERED: Diclofenac Sodi50 MG PO (20:50)
[2020-09-10 05:13] LABS: Hematocrit 37.2 % (37.0-53.0); Mean Corpuscular HGB 28.7 pg (26.0-34.0); Mean Corpuscular HGB Conc 32.3 g/dL (31.5-36.5); Mean Corpuscular Volume 89 fL (80-100); Mean Platelet Volume 11.8 fL (9.1-12.4); RDW Coefficient Variation 17.4 % (11.7-14.2); RDW Standard Deviation 57.1 fL (35.1-46.3); Red Blood Cell Count 4.18 M/mm3 (4.30-5.90); White Blood Cell Count 25.27 K/mm3 (4.00-11.30)
[2020-09-10 05:37] LABS: Albumin, Blood 1.7 g/dL (3.4-5.0)
[2020-09-10 05:39] LABS: Albumin, Blood 1.7 g/dL (3.4-5.0); Albumin/Globulin Ratio 0.5 (0.8-1.8); Bilirubin, Direct 7.7 mg/dL (0.0-0.3); Bilirubin, Indirect 1.3 mg/dL (0.1-0.7); Bun/Creatinine Ratio 21.4 (12.0-20.0); Calcium, Blood 7.8 mg/dL (8.5-10.1); Creatinine, Blood 3.23 mg/dL (0.60-1.20); Globulin, Blood 3.5 g/dL (2.2-4.0); Potassium, Blood 4.6 mmol/L (3.5-5.5); Total Protein, Blood 5.2 g/dL (6.4-8.2)
[2020-09-10 06:26] LABS: Platelet Count 29 K/mm3 (150-400)
[2020-09-10 06:34] LABS: BAND PERCENT MAN 20 % (0-8); BASOPHILS PERCENT MAN 0 % (0-2); EOSINOPHILS PERCENT MAN 0 % (0-6); LYMPHOCYTES ABSOLUTE MAN 0.25 K/mm3 (0.84-5.20); LYMPHOCYTES PERCENT MAN 1 % (21-46); MONOCYTES ABSOLUTE MAN 1.51 K/mm3 (0.16-1.47); MONOCYTES PERCENT MAN 6 % (4-13); SEG NEUTROPHILS PERCENT MAN 73 % (41-73); TOTAL CELLS COUNTED 100
--- NOTE | 2020-09-10 07:41 | NUR ---
SHIFT SUMMARY RECIEVED REPORT FROM MARYLIN SWARTZ, PATIENT TO ROOM VIA STRETCHER AND SLID TO THE BED. PATIENT LETHARGIC, WOULD WAKE AND WAS ABLE TO TELL ME HIS NAME AND . PATIENT ORIENTED TO SELF ONLY AND WOULD MUMBLE ANSWERS OTHERWISE. PATIENT UNABLE TO PROVIDE HISTORY, PER REPORT PATIENTS DAUGHTER LIVES WITH PATIENT CARES FOR HIM AND WAS IN THE ED PROVIDING INFORMATION BUT DID NOT COME UP TO THE ROOM. BED ALARM CONFUSED AND TRIED TO GET UP. PATIENT NPO, PROVIDED MOUTH CARE. 0145- PATIENT NOT PRODUCING ANY URINE, BLADDER SCAN DONE 87MLS, PT DENIES ANY PAIN IN ABDOMEN. 0150- LACTIC ACID CALLED TO DR. ALDRIDGE, 2L OF LR BOLUS STARTED THEN INFUSION OF 150ML/HR. NO CHANGES IN PT MENTATION, STILL LETHARGIC BUT AROUSABLE. PATIENT PLACED ON 3L NC, 02 SATS >90%. 0310- DR. ALDRIDGE TO ROOM TO ASSESS PATIENT. 0335-DR. ALDRIDGE CALLED, LABS ORDERED AND CONSULT FOR GI CALLED, TOLD TO CALL BACK AFTER 0800. CONSULT CALLED TO DR. ALONZO, PATIENT ADDED TO LIST, ORDERS RECIEVED. 0555- RECIEVED CRITICAL LABS, DR. ALDRIDGE CALLED, PATIENTS BP 85/48, BLOOD GLUCOSE 34, ORDERS TO TRANSFER PATIENT TO ICU, AND MEDICATED PER EMAR. DR. ALDRIDGE INFORMED OF CRITICAL PLT AND LACTIC ACID. DR. ALONZO CALLED ORDERS FOR STAT ABG. PATIENT STILL AROUSABLE TO VERBAL STIMULI BUT LETHARGIC. 0651- PATIENT TRANSFERED TO ICU.
[2020-09-10 08:32] LABS: PCO2 Arterial 28.3 mmHg (35-45); pH Blood Arterial 7.24 (7.35-7.45)
[2020-09-10 08:33] LABS: PO2 Arterial 94.5 mmHg (80-100)
[2020-09-10 08:59] LABS: Source, Urine Catheter
--- NOTE | 2020-09-10 09:05 | NUR ---
ASSUMED CARE PT TRANSFERRED TO ICU FROM PCU AT 0650. PT ADMITTED TO PCU LAST NOC FOR ACUTE LIVER FAILURE. PT ARRIVES A&OX2. KNOWS NAME, BIRTHDAY AND THAT HIS IS IN HOSPITAL. FOLLOWS SIMPLE DIRECTIONS BUT NEEDS FREQUENT REMINDERS. RESTLESS. LUNGS DIMINISHED IN BASES. 3L VIA NC. O2 SATS >96%. SR ON MONITOR, RATE 70-80'S. PACER TO LEFT CHEST WALL. ABD ROUND, DISTENDED, HYPOACTIVE BT. JAUNDICE THROUGHOUT. DAMON PLACED, 50 ML DARK MIRANDA URINE OUT. SENT TO LAB. PICC ATTEMPT X 2, UNSUCCESSFUL. D10 AT 75 ML/HR, LEVO GTT FOR MAP >65, LR 150 ML/HR. PIV X2. PT PENDING GI AND TECHNICAL BUYER CONSULT. RENAL US AND PARACENTESIS. WILL CONTINUE TO MONITOR.
[2020-09-10 09:17] LABS: Appearance, Urine Cloudy (Clear); Blood, Urine 2+ (Neg); Color, Urine Amber (P-Yellow); Glucose Qualitative, Urine 1+ (Neg); Ketones, Urine 1+ (Neg); Leukocyte Esterase, Urine 1+ (Neg); Nitrite, Urine Pos (Neg); Protein, Urine 3+ (Neg); Urobilinogen, Urine 3+ (Normal)
[2020-09-10 09:48] LABS: Bilirubin, Urine 3+ (Neg)
[2020-09-10 09:50] LABS: Bacteria Mod /hpf; Squamous Epithelial Cells Mod /hpf (Few)
[2020-09-10 09:51] LABS: Amorphous Heavy (0-Heavy); Calcium Oxalate Crystals Rare /hpf
--- NOTE | 2020-09-10 10:00 | NUR ---
DR SILVA ROUND/CENTRAL LINE PLACEMENT DR SILVA AT BEDSIDE. ANA PLACED TO RIGHT IJ FOR PRESSOR NEEDS AND POSSIBLE DIALYSIS. PETCHECIA NOTED TO RUE BELOW THE ELBOW, MOTTLING TO KNEES AND ABD. ANTIBIOTICS CHANGED, BICARB DRIP ORDERED, ALBUMIN ORDERED. CHEMBG CHANGED TO Q2 HR. PARACENTESIS D/C'D, AWAITING RENAL U/S.
[2020-09-10 11:14] LABS: Vancomycin, Random 14.4 ug/mL
--- NOTE | 2020-09-10 17:31 | NUR ---
SHIFT SUMMARY PT REMAINS A&OX2. FOLLOWS SIMPLE COMMANDS. NEURO STATUS UNCHANGED SINCE START OF SHIFT. APPEARS TO SLEEP WHEN UNDISTURBED. LUNGS CLEAR, PT ON 2L VIA NC. O2 SATS >96%. LEVO GTT TITRATED OFF THIS SHIFT. BP STABLE. ABD ROUND, FIRM IN UPPER QUADRENTS, HYPOACTIVE BT. TENDER TO PALPATION. PT C/O SEVERE PAIN, RELIEVED c DILAUDID. DAMON PLACED THIS SHIFT. 135 ML DARK MIRANDA URINE OUT THIS SHIFT, PT GREATER THAN 6L POSITIVE FLUID BALANCE. MAHURKAR PLACED TO RIGHT IJ. BICARB INFUSING AT 200 ML/HR. BLOOD GLUCOSE STABILIZED. DAUGHTER TO BEDSIDE AND UPDATED. WILL CONTINUE TO MONITOR UNTIL REPORT TO ONCOMING NURSE.
--- NOTE | 2020-09-10 21:33 | NUR ---
Care Assumed 1900 Pt unable to state location, event, or name/. When asked pt states "ok." Asked pt if he is in pain, pt states "No." Unable to squeeze hands/follow other commands. Continues to moan when in room but sleeping when undisturbed. Bicarb @ 50 ML/HR infusing via central line to right IJ. On 2 L via NC, SPO2 > 95%. Hastings in place, draining to gravity with 20 cc of jennifer cloudy urine. CBG checked. Pt appears jaundice T/O. SCD's on. VSS. NSR with BBB. Missed call from Yahaira, daughter, called daughter back and left voicemail asking to call [facility], left ICU phone number.
--- NOTE | 2020-09-10 22:02 | NUR ---
Spoke to Yahaira and grandtaye Mitul Updated on pt status. All questions answered. Yahaira states her brother Magdi will be coming in to visit tomorrow and Netroy will be coming to visit on Sunday.
--- NOTE | 2020-09-10 23:51 | NUR ---
UPDATE PT drowsy/sleepy, continues to moan and state "ok" when asking questions and "no" when asked if in pain. urine output of 35 cc's, dark jennifer and cloudy. Remains on 2 L via nC, SPO2 97%. VSS. NSR WITH BBB.
--- NOTE | 2020-09-11 00:17 | NUR ---
ASSUMED CARE PT DROWSY. PT MOANING AND ONLY STATES NO WHEN ASKED IF HE IS IN PAIN. PT NOT FOLLOWING DIRECTIONS. VS STABLE. 02 SATS REMAIN ABOVE 90% ON 2L NC. BP STABLE. HR NSR WITH BBB. DAMON PATENT AND DRAINING DARK MIRANDA URINE. SODIUM BICARB INFUSING PER ODERS. WILL CONTINUE TO MONITOR CLOSELY.
--- NOTE | 2020-09-11 00:17 | NUR ---
Transfer of care to SHERIDAN Mukherjee Report given to SHERIDAN Mukherjee. Updated on patient status and all questions answered.
[2020-09-11 03:20] LABS: Hematocrit 29.8 % (37.0-53.0); Mean Corpuscular HGB 29.2 pg (26.0-34.0); Mean Corpuscular HGB Conc 33.6 g/dL (31.5-36.5); Mean Corpuscular Volume 87 fL (80-100); Mean Platelet Volume 10.8 fL (9.1-12.4); RDW Coefficient Variation 17.2 % (11.7-14.2); Red Blood Cell Count 3.43 M/mm3 (4.30-5.90); White Blood Cell Count 12.54 K/mm3 (4.00-11.30)
[2020-09-11 03:22] LABS: Platelet Count 27 K/mm3 (150-400)
[2020-09-11 03:42] LABS: Alanine Aminotransfer (ALT/SGP 53 U/L (12-78); Albumin, Blood 2.1 g/dL (3.4-5.0); Albumin/Globulin Ratio 0.8 (0.8-1.8); Alk Phos 382 U/L (50-136); Anion Gap 14 mmol/L (6-16); Aspartate Aminotrans (AST/SGOT 84 U/L (12-37); Bilirubin, Direct 6.7 mg/dL (0.0-0.3); Bilirubin, Indirect 1.7 mg/dL (0.1-0.7); Bilirubin, Total 8.4 mg/dL (0.1-1.0); Blood Urea Nitrogen 81 mg/dL (8-24); CO2, Blood 19 mmol/L (21-32); Chloride, Blood 103 mmol/L (98-108); Creatinine, Blood 3.24 mg/dL (0.60-1.20); Globulin, Blood 2.7 g/dL (2.2-4.0); Glomerular Filtration Rate 20 (60-); Glucose, Blood 153 mg/dL (70-99); Magnesium, Blood 1.5 mg/dL (1.6-2.4); Potassium, Blood 4.8 mmol/L (3.5-5.5); Sodium, Blood 136 mmol/L (136-145); Total Protein, Blood 4.8 g/dL (6.4-8.2)
--- NOTE | 2020-09-11 05:33 | NUR ---
SHIFT SUMMARY PT REMAINS ALERT AND ORIENTED TO SELF AND PLACE. PT ONLY FOLLOWS SIMPLE COMMANDS AND ANSWERS YES OR NO OR MOANS. VS STABLE. O2 SATS REMAIN ABOVE 90% ON 2L NC. HR NSR WITH BBB. BP STABLE. PT DENIES ANY PAIN. ABD FIRM IN THE UPPER QUADRANTS AND HYPOACTIVE. DAMON PATENT AND DRAINING DARK MIRANDA URINE WITH APPROXIMATELY 125ML OUT THIS SHIFT. PT REPOSITIONED Q2H. BICARB INFUSING PER ORDERS. WILL CONTINUE TO MONITOR AND REPORT TO ONCOMING RN.
[2020-09-11 05:43] LABS: BAND PERCENT MAN 9 % (0-8); BASOPHILS PERCENT MAN 0 % (0-2); EOSINOPHILS ABSOLUTE MAN 0.12 K/mm3 (0.00-0.68); EOSINOPHILS PERCENT MAN 1 % (0-6); LYMPHOCYTES ABSOLUTE MAN 0.37 K/mm3 (0.84-5.20); LYMPHOCYTES PERCENT MAN 3 % (21-46); MONOCYTES ABSOLUTE MAN 0.75 K/mm3 (0.16-1.47); MONOCYTES PERCENT MAN 6 % (4-13); MYELOCYTE ABSOLUTE MAN 0.12 K/mm3 (0.00-0.00); MYELOCYTE PERCENT MAN 1 % (0-0); NEUTROPHILS ABSOLUTE MAN 11.16 K/mm3 (1.96-9.15); SEG NEUTROPHILS PERCENT MAN 80 % (41-73); TOTAL CELLS COUNTED 100
[2020-09-11 07:10] LABS: HBSAG SCREEN Negative (Negative); HEP A AB, IGM Negative (Negative); HEP B CORE AB, IGM Negative (Negative); HEP C VIRUS AB 0.3 (0.0-0.9)
--- NOTE | 2020-09-11 07:43 | NUR ---
ASSUMED CARE BEDSIDE REPORT FROM LISA SWARTZ. PT RESTING IN BED. WAKES c VERBAL STIMULI. DOES NOT FOLLOW COMMANDS. STATES "OK" TO ALL QUESTIONS OTHER THAN WHEN ASKED ABOUT PAIN AND PATIENT STATES "NO". DOES NOT MAKE EYE CONTACT. LUNGS DIMINISHED ON LEFT LOWER LOBE. CLEAR IN UPPERS. SR, RATE 70'S. BP STABLE. 2L O2 VIA NC, SPO2 >94%. ABD ROUND, FIRM AND DISTENDED IN UPPER QUADRENTS. HYPOACTIVE BT. NON TENDER TO PALPATION. PT CONTINUES TO BE JAUNDICE. 1+ EDEMA TO FEET BILATERALLY. DAMON PATENT, DRAINING SMALL AMOUNT OF DARK MIRANDA URINE TO GRAVITY c SEDIMENT. ANA TO RIJ, DRESSING C/D/I. INFUSING s DIFFICULTY. WILL CONTINUE TO MONITOR.
[2020-09-11 08:33] LABS: PCO2 Arterial 35.8 mmHg (35-45); PO2 Arterial 80.3 mmHg (80-100); pH Blood Arterial 7.38 (7.35-7.45)
--- NOTE | 2020-09-11 18:35 | NUR ---
SUMMARY ASSUMED CARE @ APPROX 1600, PT HAS BEEN RESTING QUIETLY, RESP UNLABORED, O2 VIA NC @ 2L, SPO2 >95%. BP WNL. PT WILL OPEN EYES W/VERBAL STIMULI, DENIES PAIN, STATES HE "DOESN'T FEEL WELL", BUT HE IS UNABLE TO EXPRESS HOW BEFORE FALLING BACK TO SLEEP. ORAL CARE & REPOSITIONING PROVIDED. 225 ML'S DARK MIRANDA URINE NOTED IN DAMON CATHETER. PT'S SON WAS AT THE BEDSIDE THIS AFTERNOON, PT WAS ABLE TO RECOGNIZE HIM & ATTEMPTED TO HAVE A CONVERSATION. WCTM & REPORT TO ANUPAM SWARTZ.
--- NOTE | 2020-09-11 20:00 | NUR ---
SHIFT ASSESSMENT RECEIVED HAND OFF FROM Glenn PAULSON RN USING SBAR DURING BEDSIDE REPORT. LYING IN SEMI FOWLERS WITH EYES CLOSED. ORIENTED X2 WITH CONFUSION NOTED. IS LETHARGIC AND DROWSY. ABLE TO VERBALIZE 2-3 WORD ANSWERS TO QUESTIONS. DENIES PAIN AND HUNGER. REPOSITIONED FOR COMFORT. NAH3O INFUSING PER MD ORDERS, NS AT TKO INFUSING PER PROTOCOL. PIV'S TO RIGHT FA AND LEFT AC ARE PATENT, EACH FLUSHING WITH EASE. RIGHT IJ MANURKEE IS PATENT. DAMON CATH PATENT, DRAINING CON MIRANDA/ORANGE URINE TO GRAVITY. LOW OUTPUT REPORTED. DENIES PAIN AND HUNGER AT THIS TIME. SCD'S TO BLE. EDEMA NOTED PER SHIFT ASSESSMENT. DENIES FURTHER NEEDS OR WANTS AT THIS TIME. SAFETY MEASURES IN PLACE. WILL CONINUE TO MONITOR.
--- NOTE | 2020-09-11 21:00 | NUR ---
UPDATE DAUGHTER SCARLET CALLED TO GET UPDATE ON PT. AFTE VERIFYING THAT SHE WAS ON THE LIST, UPDATE GIVEN. ALL QUESTIONS ANSWERED, SHE ASKED THAT HER FATHER BE TOLD THAT SHE CALLED AND SHE LOVES HIM. TIME WRITTEN ON BOARD OF HER CALL WITH MESSAGE. PT RESTING WITH EYES CLOSED AT THIS TIME. SAFETY MEASURES IN PLACE. WILL CONTINUE TO MONITOR.
--- NOTE | 2020-09-11 22:00 | NUR ---
ROUNDING NOTE LYING IN SEMI FOWLERS WITH EYES CLOSED. AAO X3, ADDED THAT HE IS IN THE HOSPITAL. DENIES PAIN, DISCOMFORT, OR FURTHER NEEDS AT THIS TIME. REPOSITIONED FOR COMFORT AND SKIN. SAFETY MEASURES IN PLACE. WILL CONTINUE TO MONITOR.
--- NOTE | 2020-09-12 02:00 | NUR ---
ROUNDING NOTE LYING IN SEMI FOWLERS WITH EYES CLOSED. AAO X3, NO FURTHER CHANGES. DENIES PAIN, DISCOMFORT, OR FURTHER NEEDS AT THIS TIME. REPOSITIONED FOR COMFORT AND SKIN. SAFETY MEASURES IN PLACE. WILL CONTINUE TO MONITOR.
--- NOTE | 2020-09-12 03:35 | NUR ---
NURSE DRAW NURSING SHONDA AM LABS VIA NURSE LINE ON [facility] TLC/HD ACCESS USING ASEPTIC TECHNIQUE. BLODD WITHDREW WITH EASE. LINE FLUSHED WITH 20ML NS AFTER DRAW WAS COMPLETED, TOLERATED WELL. DENIES FURTHER NEEDS OR WANTS AT THIS TIME. SAFETY MEASURES IN PLACE. WILL CONTINUE TO MONITOR.
[2020-09-12 03:44] LABS: Hematocrit 24.1 % (37.0-53.0); Hemoglobin 8.2 g/dL (13.5-17.5); Mean Corpuscular HGB 28.7 pg (26.0-34.0); Mean Corpuscular Volume 84 fL (80-100); Mean Platelet Volume 11.9 fL (9.1-12.4); RDW Coefficient Variation 16.8 % (11.7-14.2); Red Blood Cell Count 2.86 M/mm3 (4.30-5.90); White Blood Cell Count 9.56 K/mm3 (4.00-11.30)
[2020-09-12 03:48] LABS: Platelet Count 22 K/mm3 (150-400)
[2020-09-12 03:57] LABS: International Normalized Ratio 1.55; Prothrombin Time Results 16.2 Sec (9.7-11.5)
[2020-09-12 04:03] LABS: Alanine Aminotransfer (ALT/SGP 37 U/L (12-78); Albumin/Globulin Ratio 0.9 (0.8-1.8); Alk Phos 308 U/L (50-136); Anion Gap 9 mmol/L (6-16); Aspartate Aminotrans (AST/SGOT 51 U/L (12-37); Bilirubin, Direct 6.9 mg/dL (0.0-0.3); Bilirubin, Indirect 1.9 mg/dL (0.1-0.7); Bilirubin, Total 8.8 mg/dL (0.1-1.0); Blood Urea Nitrogen 97 mg/dL (8-24); Bun/Creatinine Ratio 29.4 (12.0-20.0); CO2, Blood 25 mmol/L (21-32); Calcium, Blood 7.2 mg/dL (8.5-10.1); Chloride, Blood 104 mmol/L (98-108); Globulin, Blood 2.2 g/dL (2.2-4.0); Glomerular Filtration Rate 19 (60-); Glucose, Blood 186 mg/dL (70-99); Magnesium, Blood 1.7 mg/dL (1.6-2.4); Phosphorus, Blood 3.5 mg/dL (2.5-4.9); Potassium, Blood 4.6 mmol/L (3.5-5.5); Sodium, Blood 138 mmol/L (136-145); Total Protein, Blood 4.2 g/dL (6.4-8.2)
[2020-09-12 05:32] LABS: BAND PERCENT MAN 1 % (0-8); BASOPHILS PERCENT MAN 0 % (0-2); EOSINOPHILS ABSOLUTE MAN 0.38 K/mm3 (0.00-0.68); EOSINOPHILS PERCENT MAN 4 % (0-6); LYMPHOCYTES ABSOLUTE MAN 0.47 K/mm3 (0.84-5.20); LYMPHOCYTES PERCENT MAN 5 % (21-46); MONOCYTES ABSOLUTE MAN 0.86 K/mm3 (0.16-1.47); MONOCYTES PERCENT MAN 9 % (4-13); NEUTROPHILS ABSOLUTE MAN 7.83 K/mm3 (1.96-9.15); SEG NEUTROPHILS PERCENT MAN 81 % (41-73); TOTAL CELLS COUNTED 100
--- NOTE | 2020-09-12 06:17 | NUR ---
SHIFT SUMMARY LYING IN SEMI FOWLERS WITH EYES CLOSED, OPENS EYES TO VERBAL STIMULI. WILL WAKE ON HIS OWN FROM TIME TO TIME, BUT ALWAYS DENIES NEEDS. REPOSITIONED FOR COMFORT PER MD ORDERS. CRITICAL VALUE FOR PLATELETTES AT 22 CALLED INTO [facility], ACKNOWLEDGED RECEIPT. NAH30 INFUSING IN D5 AT 50ML/HR PER MD ORDER TO RIGHT IJ MAHURKER TLC/HD ACCESS. LEFT AC 20G PIV IS PATENT, FLUSING WITH EASE WHILE INFUSING NS AT TKO PER PROTOCOL. RIGHT FA 20G SL PIV IS PATENT, FLUSHING WITH EASE. DAMON CATH IS PATENT, DRAINING CONC MIRANDA/ORANGE URINE WITH SEDIMENT TO GRAVITY, 375ML OUTPUT NOTED THIS SHIFT. Q6HR CBG HAVE BEEN STABLE, 0000 CBG WAS 158 AND 0600 CBG WAS 194. ORAL CARE COMPLETED PRN. DENIES PAIN, DISCOMFORT, OR FURTHER NEEDS AT THIS TIME. SAFETY MEASURES IN PLACE. WILL CONTINUE TO MONITOR AND GIVE HAND OFF TO ONCOMING SHIFT USING SBAR DURING BEDSIDE REPORT.
--- NOTE | 2020-09-12 14:00 | NUR ---
WENT TO TURN PATIENT AND HE WAS LITERALLY SOAKING IN BLACK/RED/CLOTS. BM FROM SHOULDER TO TOES. SAMPLE TAKEN, MD CALLED AND PT CLEANED UP. RECTAL TUBE PLACED FOR WATERY BM. STAT H&H DONE. CONSULT ALSO ORDERED FOR GI TO SEE PT.
[2020-09-12 14:59] LABS: Hemoglobin 6.4 g/dL (13.5-17.5)
--- NOTE | 2020-09-12 18:43 | NUR ---
SHIFT SUMMARY STAT H&H RESULTS HEMO 6.4 HCT 19. 2 UNITS PRBC ORDERED. GI CONSULT FOR EGD OR COLONOSCOPY. MD'S SPOKE TO FAMILY AND THEY HAVE DECIDED TO GO COMFORT CARE, DUE TO OTHER ISSUES AND PT PUT OUT ANOTHER 700 ML BLACK/RED/CLOTTED BM'S. FAMILY AT BED SIDE AND DNR BRACELET ON
--- NOTE | 2020-09-12 20:00 | NUR ---
SHIFT ASSESSMENT RECEIVED HAND OFF FROM Cholo BRADLEY RN USING SBAR DURING BEDSIDE REPORT. PT HAS BEEN CHANGED TO COMFORT CARE. FAMILY AT BEDSIDE INCLUDING SON, DAUGHTER, AND 2 GRANDCHILDREN. RESTING WITH EYES CLOSED IN SEMI FOWLERS. REPOSITIONED AND EXTREMITIES ELEVATED ON PILLOWS FOR COMFORT. BP CUFF REMOVED, BUT OTHER VS RECORDING. LEFT AC 20G AND RIGHT FA 20G ARE PATENT, FLUSHING WITH EASE. LEFT UPPER ARM POWERGLIDE IS PATENT. RIGHT IJ MAHURKER IS PATENT. DAMON CATH OIS PATENT, DRAINING CON MIRANDA/YELLOW URINE TO GRAVITY. RECTAL TUBE DRAINING RED FLUID TO GRAVITY. ANSWERS TO VERBAL STIMULI WITH SHORT 1-3 WORD ANSWERS. ORAL CARE COMPLETED. DENIES PAIN, DISCOMFORT, OR FURTHER NEEDS AT THIS TIME. SAFETY MEASURES IN PLACE. WILL CONTINUE TO MONITOR.
--- NOTE | 2020-09-13 | NUR ---
MIDNIGHT ROUNDS RESTING WITH EYES CLOSED IN SEMI FOWLERS. REPOSITIONED AND EXTREMITIES ELEVATED ON PILLOWS FOR COMFORT. LEFT AC 20G AND RIGHT FA 20G ARE PATENT, FLUSHING WITH EASE. LEFT UPPER ARM POWERGLIDE IS PATENT. RIGHT IJ MAHURKER IS PATENT. DAMON CATH PATENT, DRAINING CON MIRANDA/YELLOW URINE TO GRAVITY. RECTAL TUBE DRAINING DARK RED FLUID WITH CLOTS TO GRAVITY. ANSWERS TO VERBAL STIMULI WITH SHORT 1-3 WORD ANSWERS. ORAL CARE COMPLETED. DENIES PAIN, DISCOMFORT, OR FURTHER NEEDS AT THIS TIME. SAFETY MEASURES IN PLACE. WILL CONTINUE TO MONITOR.
--- NOTE | 2020-09-13 04:00 | NUR ---
4AM ROUNDS RESTING WITH EYES CLOSED IN SEMI FOWLERS. REPOSITIONED AND EXTREMITIES ELEVATED ON PILLOWS FOR COMFORT. LEFT AC 20G AND RIGHT FA 20G ARE PATENT. LEFT UPPER ARM POWERGLIDE IS PATENT. RIGHT IJ MAHURKER IS PATENT. DAMON CATH PATENT, DRAINING CONCENTRATED MIRANDA/YELLOW URINE WITH SMALL BLOOD CLOTS TO GRAVITY. RECTAL TUBE DRAINING DARK RED FLUID WITH CLOTS TO GRAVITY. OOZING OF DARK BLOOD NOTED FROM AROUND RECTAL TUBE. CLEANED AND FRESH AIR CHUCKS PLACED UNDER HIM. IS MOANING AND AND STATING, "OK, OK, OK." WILL MEDICATE PER EMAR. SAFETY MEASURES IN PLACE. WILL CONTINUE TO MONITOR.
--- NOTE | 2020-09-13 06:26 | NUR ---
SHIFT SUMMARY RESTING WITH EYES CLOSED IN SEMI FOWLERS. REPOSITIONED AND EXTREMITIES ELEVATED ON PILLOWS FOR COMFORT. LEFT AC 20G AND RIGHT FA 20G ARE PATENT. LEFT UPPER ARM POWERGLIDE IS PATENT. RIGHT IJ MAHURKER IS PATENT. DAMON CATH PATENT, DRAINING CONCENTRATED MIRANDA/YELLOW URINE WITH SMALL BLOOD CLOTS TO GRAVITY. RECTAL TUBE DRAINING DARK RED FLUID WITH CLOTS TO GRAVITY. OOZING OF DARK BLOOD NOTED FROM AROUND RECTAL TUBE. CLEANED AND FRESH AIR CHUCKS PLACED UNDER HIM. SAFETY MEASURES IN PLACE. WILL CONTINUE TO MONITOR.
--- NOTE | 2020-09-13 06:55 | NUR ---
FAMILY UPDATED PT'S DAUGHTER SCARLET ORTIZ ON PT'S CURRENT STATUS AND CARE. SHE STATED WILL BE BY TO VISIT HIM ABOUT 8:30AM TODAY. SAFETY MEASURS IN PLACE. WILL CONTINUE.
--- NOTE | 2020-09-13 07:15 | NUR ---
PATIENT PASSED AT 0714 WHILE RN IN ROOM 7 GETTING BEDSIDE REPORT. PTS FAMILY CALLED AND INFORMED. AWAITING VISITORS OR FURTHER INSTRUCTIONS FROM FAMILY
== END 2020-09-13 07:15 | DRG 871 ==
LOC: ER 18:05 → PCU 21:10 → ICUE 21:10 → ERHOLD 21:10 → PCU 09-10 00:22 → ICUE 09-10 06:52
PROVIDERS: Emergency Medicine; Internal Medicine Critical Care Medicine; Internal Medicine Nephrology; Nurse Practitioner Acute Care; ADMIT Internal Medicine
PROC: 02HV33Z Insertion of Infusion Device into Superior Vena Cava, Percutaneous Approach (ICD-10-PCS; principal; 2020-09-09)
PROC: 3E043XZ Introduction of Vasopressor into Central Vein, Percutaneous Approach (ICD-10-PCS; 2020-09-10)
DX: A41.50 Gram-negative sepsis, unspecified (principal); R65.21 Severe sepsis with septic shock; G93.41 Metabolic encephalopathy; K65.2 Spontaneous bacterial peritonitis; I50.43 Acute on chronic combined systolic (congestive) and diastolic (congestive) heart failure; N18.4 Chronic kidney disease, stage 4 (severe); K76.6 Portal hypertension; I13.0 Hypertensive heart and chronic kidney disease with heart failure and stage 1 through stage 4 chronic kidney disease, or unspecified chronic kidney disease; K74.60 Unspecified cirrhosis of liver; I95.9 Hypotension, unspecified; K21.9 Gastro-esophageal reflux disease without esophagitis; I25.10 Atherosclerotic heart disease of native coronary artery without angina pectoris; N40.0 Benign prostatic hyperplasia without lower urinary tract symptoms; Z79.4 Long term (current) use of insulin; I25.2 Old myocardial infarction; G47.33 Obstructive sleep apnea (adult) (pediatric); E11.22 Type 2 diabetes mellitus with diabetic chronic kidney disease; D63.1 Anemia in chronic kidney disease; E11.65 Type 2 diabetes mellitus with hyperglycemia; M54.9 Dorsalgia, unspecified
CPT/HCPCS: 36415; 36430; 36556; 36600; 51702; 70450; 71045; 74176; 76705; 80048; 80053; 80069; 80074; 80076; 80202; 81001; 82040; 82105; 82140; 82247; 82248; 82803; 82947; 83605; 83615; 83735; 83880; 84100; 84300; 84484; 85014; 85018; 85025; 85610; 85730; 86850; 86900; 86901; 86923; 87040; 87077; 87086; 87186; 93005; 93010; 93975; 96361; 96365; 96375; 99285-25; A9270; C1751; C1752; C9113; G0480; J0456; J0692; J0696; J0881; J1170; J2354; J2543; J3370; J3475; J7030; J7050; J7060; J7070; J7120; P9016; P9046